=== PATIENT | male | born 1995 | race Caucasian/White ===

== ENCOUNTER 2018-10-17 21:50 | Emergency (ER) | payer MEDICAID ==
[~2018-10-17] VITALS: Ht 177.8 cm; Wt 97.5 kg
[2018-10-17] MEDS ORDERED: IV NS 0.9% 1,000 ML BAG IV ONE (22:30)
[2018-10-17] MEDS ORDERED: IBUPROFEN 600 MG TABLET PO ONE ×2 (22:30→22:41)
[2018-10-17] MEDS ORDERED: ALBUTEROL FS 2.5 MG/3 ML VIAL.NEB NEB ONE (22:30)
[2018-10-17] MEDS ORDERED: ACETAMINOPHEN ES 500 MG TABLET PO ONE (22:30)
[2018-10-17] MEDS ORDERED: ACETAMINOPHEN ES 500 MG TABLET ONE (22:41)
[2018-10-17] MEDS ORDERED: ALBUTEROL FS 2.5 MG/3 ML VIAL.NEB ONE (22:44)
--- NOTE | 2018-10-17 22:50 | NUR ---
BIBFAMILY C/O SORE THROAT/COUGH/CONGESTION ALSO STATES HE FEELS SOB. SEEN AT URGENT CARE TODAY. GIVEN AZITHROMYCIN AND PREDNISONE. PT PLACED ON THE MONITOR AND ALL VS WNL. PT PLACED ON O2 @ 2LPM VIA NC. PT RESTING IN BED. AWAITING MD MEANS.
[2018-10-17 23:57] VITALS: BP 124/64
== END 2018-10-17 23:58 | disposition home or self-care (01) ==
LOC: ER 21:54
DX: J45.909 Unspecified asthma, uncomplicated (principal); F17.200 Nicotine dependence, unspecified, uncomplicated
CPT/HCPCS: 71045; 87804 ×2; 94640; 99284; A4606; J7030; Z7610; 87400

== ENCOUNTER 2019-01-13 23:55 | Emergency (ER) | payer MEDICAID, OTHER ==
[~2019-01-13] VITALS: Ht 180.3 cm; Wt 105.2 kg
--- NOTE | 2019-01-14 00:17 | NUR ---
BIBS. C/O "HAVING SHORTNESS OF BREATH EVERY TIME I SLEEP, WAKES ME UP" WGHEEZING NOTED. SOB NOTED. RT PAGED. AT BEDSIDE FOR MIGUELANGEL
[2019-01-14] MEDS ORDERED: DEXAMETHASONE SOD PHOSPHATE 10 MG/ML VIAL ONE (00:18)
[2019-01-14] MEDS ORDERED: ALBUTEROL FS 2.5 MG/3 ML VIAL.NEB NEB ONE (00:30)
[2019-01-14] MEDS ORDERED: DEXAMETHASONE SOD PHOSPHATE 4 MG/ML VIAL IM ONE (00:30)
[2019-01-14] MEDS ORDERED: IPRATROPIUM NEB FS 0.5 MG/2.5 ML AMPUL.NEB NEB ONE (00:30)
[2019-01-14] MEDS ORDERED: IPRATROPIUM NEB FS 0.5 MG/2.5 ML AMPUL.NEB ONE (00:33)
[2019-01-14] MEDS ORDERED: ALBUTEROL FS 2.5 MG/3 ML VIAL.NEB ONE (00:33)
[2019-01-14 01:31] VITALS: BP 118/79
--- NOTE | 2019-01-14 01:31 | NUR ---
Patient discharged to home in stable condition. Written and verbal after care instructions given. Patient verbalizes understanding of instruction. Pt ambulatory with a steady gait
== END 2019-01-14 01:32 | disposition home or self-care (01) ==
LOC: ER 23:55
DX: J98.01 Acute bronchospasm (principal); J06.9 Acute upper respiratory infection, unspecified; F17.200 Nicotine dependence, unspecified, uncomplicated
CPT/HCPCS: 71045; 94640; 96372; 99283; J1100